=== PATIENT | male | born 1930 | race Caucasian/White ===

== ENCOUNTER 2017-12-16 08:52 | Observation (INO) | payer OTHER, BC ==
[2017-12-16 08:58] VITALS: BMI 29.9
[2017-12-16] MEDS ORDERED: ASPIRIN 325 MG ENTERIC COATED TABLET (FP) PO ONE (09:07)
[2017-12-16] MEDS ORDERED: ONDANSETRON 4 MG/2 ML VIAL IVPUSH ONE (09:07)
[2017-12-16] MEDS ORDERED: RANITIDINE HCL 150 MG TABLET (FP) PO ONE (09:09)
[2017-12-16] MEDS ORDERED: RANITIDINE HCL 150 MG TABLET (FP) ONE (09:24)
[2017-12-16] MEDS ORDERED: ASPIRIN 325 MG TABLET ONE (09:24)
--- NOTE | 2017-12-16 09:24 | PDOC ---
History of Present Illness - General Chief Complaint: Shortness of Breath Stated Complaint: SOB Time Seen by Provider: 12/16/17 09:06 History Source: Patient, Family - History of Present Illness Initial Comments: 12/16/17 09:19 87yoM hx of HTN, CABG, stents presents w/ SOB and nausea x midnight. Constant SOB w/ intermittnet nausea x midnight when he was woken from sleep w/ symptoms. no chest pain, no palps. Pt did have uroloic procedure 2d ago - cystoscopy. Pt states he was awake during procedure, proceudre approx 30 mins, ambulatory before and afterwards. No fevers, no travel, no vomiting, no diarrhea. Past History - Past Medical History Allergies/Adverse Reactions: Allergies Allergy/AdvReac Type Severity Reaction Status Date / Time No Known Allergies Allergy Verified 12/16/17 08:53 Home Medications: Ambulatory Orders Aspirin [ASA -] 81 mg PO DAILY 12/16/17 Ranolazine [Ranexa] 500 mg PO DAILY 12/16/17 COPD: No HTN: Yes Hypercholesterolemia: Yes - Surgical History Abdominal Surgery: Yes (2 HERNIA) Cardiac Surgery: Yes (3 BYPASS, [place], [place]) - Suicide/Smoking/Psychosocial Hx Smoking History: Former smoker Have you smoked in the past 12 months: No Information on smoking cessation initiated: No Hx Alcohol Use: No Drug/Substance Use Hx: No Substance Use Type: None *Physical Exam - Vital Signs Last Vital Signs Temp Pulse Resp BP Pulse Ox 97.5 F L 66 18 152/88 100 12/16/17 08:53 12/16/17 08:53 12/16/17 08:53 12/16/17 08:53 12/16/17 08:53 - Physical Exam Comments: 12/16/17 09:20 NAD, well appearing MMM RRR CTABL soft NTND no edema gait wnl, neuro grossly intact A&O x 3. Heart Score/ECG Review - History History: Moderately suspicious - Electrocardiogram EKG: Normal - Age Age: >/= 65 - Risk Factors Risk Factors Heart Score: Yes Hx Hypercholesterolemia, Yes Hx Hypertension, Yes Smoking History Based on the list above the patient has:: >/=3 risk factors or Hx atherosclerotic disease - Troponin Troponin: </= normal limit - Score Heart Score - Total: 5 - ECG Intrepretation Rhythm: Regular Rhythm - [place]: Normal - ECG Impressions Normal ECG: Yes ED Treatment Course - LABORATORY CBC & Chemistry Diagram: 12/16/17 09:00 12/16/17 09:00 - RADIOLOGY Radiology Studies Ordered: Category Date Time Status CHEST PA & LAT [RAD] Stat Radiology 12/16/17 09:07 Ordered Medical Decision Making - Medical Decision Making 12/16/17 09:22 87yoM w/ cardiac history presnets w/ acute onset of SOB and intermittent nausea overnight last night, concerning for ACS. Mild hypoxia on examination, low risk for PE despite brief outpatient urologic procedure recently. - labs - ekg - cardaic moniotr - CXR - ASA, sxs control - admit. 12/16/17 11:30 Case discussed w/ covering physician for pt's core paster. Pt's core paster: Dr. Lance Gomez @ [facility]. [phone] ECHO 2017 EF 60% CCTA 2012 w/ heavily calcified [place] arteries, patent CABG grafts, patent in- graft stents. Agrees w/ admit. *DC/Admit/Observation/Transfer Diagnosis at time of Disposition: Shortness of breath - Discharge Dispostion Decision to Admit order: Yes - Referrals Referrals: Alesha Mares MD [Primary Care Provider] - - Patient Instructions - Post Discharge Activity
[2017-12-16] MEDS ORDERED: ONDANSETRON 4 MG/2 ML VIAL ONE (09:25)
[2017-12-16 09:38] LABS: BASO % 1.2 % (0-2.0); EOS % 0.8 % (0-4.5); HEMATOCRIT 39.7 % (35.4-49); HEMOGLOBIN 13.4 GM/dl (11.7-16.9); LYMPH % 17.8 % (8-40); MCH 34.8 pg (25.7-33.7); MCHC 33.7 g/dl (32.0-35.9); MEAN CELL VOLUME 103.2 fl (80-96); MEAN PLT VOLUME 8.5 fl (7.5-11.1); MONO % 4.6 % (3.8-10.2); NEUT % 75.6 % (42.8-82.8); PLATELET COUNT 130 K/MM3 (134-434); RBC 3.85 M/mm3 (4.00-5.60); RDW 12.6 % (11.9-15.9); WHITE BLOOD COUNT 6.3 K/mm3 (4.0-10.8)
[2017-12-16 09:51] LABS: ALBUMIN 3.6 g/dl (3.5-5.0); ALK PHOS 100 U/L (32-92); ANION GAP 8 MMOL/L (8-16); BILIRUBIN,TOTAL 0.9 mg/dl (0.2-1.0); BLOOD UREA NITROGEN 12 mg/dl (7-18); CALCIUM 8.4 mg/dl (8.4-10.2); CHLORIDE 102 mmol/L (98-107); CO2 24 mmol/L (22-28); CREATININE 0.8 mg/dl (0.6-1.3); GLUCOSE,RANDOM 139 mg/dl (74-106); POTASSIUM 4.2 mmol/L (3.5-5.1); SGOT/AST 21 U/L (10-42); SGPT/ALT 12 U/L (10-40); SODIUM 134 mmol/L (136-145); TOT PROT 6.4 g/dl (6.4-8.3)
[2017-12-16 10:26] LABS: ACTIVATED PTT 30.9 SECONDS (25.2-36.5)
[2017-12-16 10:30] LABS: INR 1.21 (0.82-1.09); PROTHROMBIN TIME (PATIENT) 13.5 SEC (10.2-13.0)
--- NOTE | 2017-12-16 11:43 | HP ---
CHIEF COMPLAINT: SOB PCP: Dr. Mares Acct Exec: Dr. Lance Gomez, [facility], HISTORY OF PRESENT ILLNESS 87-year old male with a PMH significant for HTN, HLD, CAD s/p CABG s/p stents. Presented to the ED today with a complaint of SOB and nausea since midnight. Awoke from sleep feeling SOB although not acutely so. Accompanied by nausea but no vomiting. Patient was able to go to the bathroom twice during the night which is on a lower floor. Twice climbed down the stairs and then up without exacerbation of symptoms. Did not awaken until 7:45am to say he was not feeling well. At that point was able to get up, dress himself, go down three flights of stairs, and walk to the car. Per , she felt patient was exhibiting signs of anxiety. Patient denies chest pain, palpitations, diaphoresis, lightheadedness, orthopnea, lower extremity swelling. Denies fever , sweats, chills, nausea, vomiting, diarrhea. ER course was notable for: (1) (2) (3) Recent Travel: No PAST MEDICAL HISTORY: Hypertension Hyperlipidemia PAST SURGICAL HISTORY: Hernia repair x 2 Coronary bypass/stenting Social History: Smoking: former Alcohol: no Drugs: no Family History: Allergies No Known Allergies Allergy (Verified 12/16/17 08:53) HOME MEDICATIONS: Home Medications Medication Instructions Recorded Aspirin [ASA -] 81 mg PO DAILY 12/16/17 Ranolazine [Ranexa] 500 mg PO DAILY 12/16/17 REVIEW OF SYSTEMS CONSTITUTIONAL: Absent: fever, chills, diaphoresis, generalized weakness, malaise, loss of appetite, weight change HEENT: Absent: rhinorrhea, nasal congestion, throat pain, throat swelling, difficulty swallowing, mouth swelling, ear pain, eye pain, visual changes CARDIOVASCULAR: +SOB Absent: chest pain, syncope, palpitations, irregular heart rate, lightheadedness , peripheral edema RESPIRATORY: Absent: cough, shortness of breath, dyspnea with exertion, orthopnea, wheezing, stridor, hemoptysis GASTROINTESTINAL: +nausea Absent: abdominal pain, abdominal distension, nausea, vomiting, diarrhea, constipation, melena, hematochezia GENITOURINARY: Absent: dysuria, frequency, urgency, hesitancy, hematuria, flank pain, genital pain MUSCULOSKELETAL: Absent: myalgia, arthralgia, joint swelling, back pain, neck pain SKIN: Absent: rash, itching, pallor HEMATOLOGIC/IMMUNOLOGIC: Absent: easy bleeding, easy bruising, lymphadenopathy, frequent infections ENDOCRINE: Absent: unexplained weight gain, unexplained weight loss, heat intolerance, cold intolerance NEUROLOGIC: Absent: headache, focal weakness or paresthesias, dizziness, unsteady gait, seizure, mental status changes, bladder or bowel incontinence PSYCHIATRIC: Absent: anxiety, depression, suicidal or homicidal ideation, hallucinations. PHYSICAL EXAMINATION Vital Signs - 24 hr 12/16/17 08:53 Temperature 97.5 F L Pulse Rate 66 Respiratory 18 Rate Blood Pressure 152/88 O2 Sat by Pulse 100 Oximetry (%) GENERAL: Awake, alert, and fully oriented, in no acute distress. HEAD: Normal with no signs of trauma. EYES: Pupils equal, round and reactive to light, extraocular movements intact, sclera anicteric, conjunctiva clear. No lid lag. NECK: Normal range of motion, supple without lymphadenopathy, JVD, or masses. LUNGS: Breath sounds equal, clear to auscultation bilaterally. No wheezes, and no crackles. No accessory muscle use. HEART: Regular rate and rhythm, normal S1 and S2 +murmur ABDOMEN: Soft, nontender, not distended, normoactive bowel sounds, no guarding, no rebound MUSCULOSKELETAL: Normal range of motion at all joints. No bony deformities or tenderness. No CVA tenderness. UPPER EXTREMITIES: 2+ pulses, warm, well-perfused. No cyanosis. No clubbing. No peripheral edema. Extensive purpura bilateral hands LOWER EXTREMITIES: 2+ pulses, warm, well-perfused. No calf tenderness. No peripheral edema. NEUROLOGICAL: Cranial nerves II-XII intact. Normal speech. Laboratory Results - last 24 hr 12/16/17 12/16/17 12/16/17 09:00 09:00 09:00 WBC 6.3 RBC 3.85 L Hgb 13.4 Hct 39.7 MCV 103.2 H MCH 34.8 H MCHC 33.7 RDW 12.6 Plt Count 130 L MPV 8.5 Absolute Neuts (auto) 4.6 Neutrophils % 75.6 D Lymphocytes % 17.8 D Monocytes % 4.6 Eosinophils % 0.8 D Basophils % 1.2 PT with INR 13.5 H INR 1.21 PTT (Actin FS) 30.9 Sodium 134 L Potassium 4.2 Chloride 102 Carbon Dioxide 24 Anion Gap 8 BUN 12 Creatinine 0.8 Creat Clearance w eGFR > 60 Random Glucose 139 H D Calcium 8.4 Total Bilirubin 0.9 AST 21 ALT 12 D Alkaline Phosphatase 100 H Creatine Kinase 84 Troponin I Total Protein 6.4 Albumin 3.6 12/16/17 09:00 WBC RBC Hgb Hct MCV MCH MCHC RDW Plt Count MPV Absolute Neuts (auto) Neutrophils % Lymphocytes % Monocytes % Eosinophils % Basophils % PT with INR INR PTT (Actin FS) Sodium Potassium Chloride Carbon Dioxide Anion Gap BUN Creatinine Creat Clearance w eGFR Random Glucose Calcium Total Bilirubin AST ALT Alkaline Phosphatase Creatine Kinase Troponin I < 0.03 Total Protein Albumin ASSESSMENT/PLAN: 87-year old male with a PMH significant for HTN, HLD, CAD s/p CABG s/p stents. Admitted for SOB. SOB --trop neg x 2, third pending --CXR unremarkable --BNP wnl --ECG not suggestive of acute ischemic event --d-dimer negative; no indication for further PE workup --echo ordered --stress on Monday; make NPO on Monday night --afebrile, no leukocytosis; observe off antibiotics Coronary artery disease --continue ASA, Plavix, Ranexa, isosorgbide, Lipitor Hypertension --BP stable --not on antihypertensives Hyperlipidemia --continue atorvastatin DVT prophylaxis: subq heparin Visit type - Emergency Visit Emergency Visit: Yes ED Registration Date: 12/16/17 Care time: The patient presented to the Emergency Department on the above date and was hospitalized for further evaluation of their emergent condition. - New Patient This patient is new to me today: Yes Date on this admission: 12/16/17 - Critical Care Critical Care patient: No
--- NOTE | 2017-12-16 14:48 | EKG ---
Test Reason : Blood Pressure : / mmHG Vent. Rate : 063 BPM Atrial Rate : 063 BPM P-R Int : 146 ms QRS Dur : 094 ms QT Int : 460 ms P-R-T Axes : 017 -24 016 degrees QTc Int : 470 ms POOR DATA QUALITY, INTERPRETATION MAY BE ADVERSELY AFFECTED NORMAL SINUS RHYTHM NORMAL ECG WHEN COMPARED WITH ECG OF 11-DEC-2001 01:23, PREMATURE ECTOPIC COMPLEXES ARE NO LONGER PRESENT Confirmed by MD Pratik, Luis ([id number]) on 12/16/2017 2:48:30 PM Referred By: DAKOTA Confirmed By:Luis Christie MD
[2017-12-16] MEDS: HEPARIN NA (PORCINE) 5,000 UNITS/ML 1ML VIAL SQ SCH (17:24)
--- NOTE | 2017-12-16 17:49 | CON.CARD ---
Consult Consult Specialty:: cardiology Reason for Consultation:: SOB; hx CABG - History of Present Illness Chief Complaint: Pt A&Ox3; no chest pain or dyspnea presently History of Present Illness: 87yo white man with PM hx of HTN, [place]-->CABG 1993, with coronary stent of ? vein graft 1995, HTN, hyperlipidemia, obesity, who presents w/ SOB and nausea since midnight. Constant SOB for hours w/ intermittent nausea when he was woken from sleep w/ symptoms. no chest pain, but some accompanying chest pressure, no palpitations. Pt did have urologic procedure 2d ago - cystoscopy. Pt states he was awake during procedure, procedure approx 30 mins, ambulatory before and afterwards. No fevers, no travel, no vomiting, no diarrhea. Quit cigarettes >50 years ago - History Source History Provided By: Patient, Medical Record Limitations to Obtaining History: No Limitations - Past Medical History Cardio/Vascular: Yes: CAD, HTN, Hyperlipdemia, DE - Past Surgical History Past Surgical History: Yes: CABG, Stent - Alcohol/Substance Use Hx Alcohol Use: No - Smoking History Smoking history: Former smoker Have you smoked in the past 12 months: No - Social History Usual Living Arrangement: With Spouse Place of : [facility] Home Medications - Allergies Allergies/Adverse Reactions: Allergies Allergy/AdvReac Type Severity Reaction Status Date / Time No Known Allergies Allergy Verified 12/16/17 08:53 - Home Medications Home Medications: Ambulatory Orders Aspirin [ASA -] 81 mg PO DAILY 12/16/17 Atorvastatin Ca [Lipitor] 80 mg PO DAILY 12/16/17 Clopidogrel Bisulfate [Plavix] 75 mg PO DAILY 12/16/17 Isosorbide Mononitrate [Isosorbide Mononitrate ER] 120 mg PO DAILY 12/16/17 Ranolazine [Ranexa] 500 mg PO DAILY 12/16/17 Family Disease History - Family Disease History Family History: Denies Review of Systems - Review of Systems Constitutional: reports: Other (shortness of breath and exertiona fatigue) Eyes: reports: No Symptoms HENT: reports: No Symptoms Neck: reports: No Symptoms Cardiovascular: reports: Shortness of Breath Respiratory: reports: SOB Gastrointestinal: reports: No Symptoms Genitourinary: reports: No Symptoms Breasts: reports: No Symptoms Reported Musculoskeletal: reports: No Symptoms Integumentary: reports: No Symptoms Neurological: reports: No Symptoms Endocrine: reports: No Symptoms Hematology/Lymphatic: reports: No Symptoms Psychiatric: reports: No Symptoms - Risk Factors Known Risk Factors: Yes: Age, Gender, Hypercholesterolemia, Hypertension, Physical Inactivity (sedentary lifestyle), Prior [place] /Emb Stroke, Smoking (former ), Other (DE-->CABG and , later, coronary stent) Vital Signs: Vital Signs Temperature 97.6 F 12/16/17 14:00 Pulse Rate 70 12/16/17 14:00 Respiratory Rate 18 12/16/17 14:00 Blood Pressure 124/63 12/16/17 14:00 O2 Sat by Pulse Oximetry (%) 100 12/16/17 13:04 Constitutional: Yes: Well Nourished Eyes: Yes: WNL HENT: Yes: WNL Neck: Yes: WNL Respiratory: Yes: WNL Gastrointestinal: Yes: WNL Renal/: No: Anuria Cardiovascular: Yes: WNL Carotid Bruit: No PMI: Non-Displaced Heart Sounds: Yes: S1, S2 Murmur: Yes: Systolic Murmur Peripheral Pulses WNL: No Integumentary: Yes: Bruising (hands (blames it on "Plavix"); also on ASA) Neurological: Yes: WNL Psychiatric: Yes: WNL - Other Data Labs, Other Data: CBC, BMP 12/16/17 09:00 12/16/17 09:00 INR, PTT INR 1.21 (0.82-1.09) 12/16/17 09:00 Troponin, BNP 12/16/17 12/16/17 12/16/17 09:00 12:00 12:20 Troponin I < 0.03 Cancelled < 0.03 B-Natriuretic Peptide 301.0 Troponin, BNP 12/16/17 12/16/17 12/16/17 09:00 12:00 12:20 Troponin I < 0.03 Cancelled < 0.03 B-Natriuretic Peptide 301.0 Abnormal Lab Results 12/16/17 12/16/17 12/16/17 09:00 09:00 09:00 RBC 3.85 L MCV 103.2 H MCH 34.8 H Plt Count 130 L PT with INR 13.5 H Sodium 134 L Random Glucose 139 H D Alkaline Phosphatase 100 H Imaging - Results Chest X-ray: Image Reviewed (no acute pathology) EKG: Image Reviewed (NSR; no acute STT changes) Problem List - Problems (1) Status post myocardial infarction Code(s): I25.2 - OLD MYOCARDIAL INFARCTION (2) Shortness of breath Code(s): R06.02 - SHORTNESS OF BREATH (3) Hx of CABG Code(s): Z95.1 - PRESENCE OF AORTOCORONARY BYPASS GRAFT (4) Stented coronary artery Code(s): Z95.5 - PRESENCE OF CORONARY ANGIOPLASTY IMPLANT AND GRAFT (5) HTN (hypertension) Code(s): I10 - ESSENTIAL (PRIMARY) HYPERTENSION (6) Obesity Code(s): E66.9 - OBESITY, UNSPECIFIED (7) Hyperlipidemia Assessment/Plan: on atorvastatin (total cholesterol 119; LDL 60 mg/dL). Code(s): E78.5 - HYPERLIPIDEMIA, UNSPECIFIED (8) [place] cardiac risk >20% in next 10 years Assessment/Plan: On ASA and Plavix. Pt says he is on Ranexa 500 mg tid. Imdur 30 mg daily Continue atorvastatin 80 mg daily Telemetry; serial EKGs; ECHO. Await records from pt's children's tutor. Plan on stress treadmill MIBI Monday. Code(s): Z91.89 - OTH PERSONAL RISK FACTORS, NOT ELSEWHERE CLASSIFIED
[2017-12-16] MEDS: RANOLAZINE E.R. 500 MG TABLET (FP) PO SCH (21:12)
[2017-12-17] MEDS: HEPARIN NA (PORCINE) 5,000 UNITS/ML 1ML VIAL SQ SCH ×3 (01:16→17:31)
[2017-12-17 09:40] LABS: ALBUMIN 3.3 g/dl (3.5-5.0); ALK PHOS 91 U/L (32-92); ANION GAP 8 MMOL/L (8-16); BILIRUBIN,TOTAL 0.7 mg/dl (0.2-1.0); BLOOD UREA NITROGEN 14 mg/dl (7-18); CALCIUM 8.2 mg/dl (8.4-10.2); CHLORIDE 104 mmol/L (98-107); CO2 23 mmol/L (22-28); CREATININE 0.8 mg/dl (0.6-1.3); GLUCOSE,RANDOM 86 mg/dl (74-106); POTASSIUM 4.3 mmol/L (3.5-5.1); SGOT/AST 19 U/L (10-42); SGPT/ALT 11 U/L (10-40); SODIUM 135 mmol/L (136-145); TOT PROT 5.8 g/dl (6.4-8.3)
[2017-12-17] MEDS: RANOLAZINE E.R. 500 MG TABLET (FP) PO SCH ×2 (09:51→21:05)
[2017-12-17] MEDS: ATORVASTATIN CA 80 MG TABLET (FP) PO SCH (09:52)
[2017-12-17] MEDS: ISOSORBIDE MONONITRATE 60 MG TAB.SR.24H (FP) PO SCH (09:52)
[2017-12-17] MEDS: ASPIRIN 81 MG CHEWABLE TABLETS PO SCH (09:52)
[2017-12-17] MEDS: CLOPIDOGREL BISULFATE 75 MG TABLET (FP) PO SCH (09:53)
[2017-12-17] MEDS ORDERED: RANOLAZINE E.R. 500 MG TABLET (FP) PO SCH (10:00)
[2017-12-17] MEDS ORDERED: PATIENT'S OWN MEDICATION (NON-FORMULARY) (Isosorbide Mononitrate [Isosorbide Mononitrate E PO SCH (10:00)
--- NOTE | 2017-12-17 10:41 | PN ---
Physical Exam: SUBJECTIVE: Patient seen and examined,reports feeling better, denies cp, sob, palpitations, abdominal pain, N/V/D. OBJECTIVE: Vital Signs Period Temp Pulse Resp BP Sys/Parrish Pulse Ox Last 24 Hr 97.5 F-97.8 F 61-75 16-19 105-141/52-73 94-100 GENERAL: The patient is awake, alert, and fully oriented, in no acute distress. HEAD: Normal with no signs of trauma. EYES: PERRL, extraocular movements intact, sclera anicteric, conjunctiva clear. No ptosis. ENT: Ears normal, nares patent, oropharynx clear without exudates, moist mucous membranes. NECK: Trachea midline, full range of motion, supple. LUNGS: Breath sounds equal, clear to auscultation bilaterally, no wheezes, no crackles, no accessory muscle use. HEART: Regular rate and rhythm, S1, S2 without murmur, rub or gallop. ABDOMEN: Soft, non-tender, non-distended, normoactive bowel sounds, no guarding , no rebound, no hepatosplenomegaly, no masses. EXTREMITIES: 2+ pulses, warm, well-perfused, no edema. NEUROLOGICAL: Cranial nerves II through XII grossly intact. Normal speech, gait not observed. PSYCH: Normal mood, normal affect. SKIN: Warm, dry, normal turgor, no rashes or lesions noted Laboratory Results - last 24 hr 12/16/17 12/16/17 12/16/17 09:00 12:00 12:02 WBC Corrected WBC (auto) RBC Hgb Hct MCV MCH MCHC RDW Plt Count MPV Absolute Neuts (auto) Neutrophils % Lymphocytes % Monocytes % Eosinophils % Basophils % Nucleated RBC % Platelet Estimate Platelet Comment PT with INR 13.5 H INR 1.21 PTT (Actin FS) 30.9 D-Dimer < 200 Sodium Potassium Chloride Carbon Dioxide Anion Gap BUN Creatinine Creat Clearance w eGFR Random Glucose Calcium Magnesium Total Bilirubin AST ALT Alkaline Phosphatase Troponin I Cancelled B-Natriuretic Peptide 301.0 Total Protein Albumin TSH 1.66 D 12/16/17 12/16/17 12/17/17 12:20 19:00 08:00 WBC Cancelled Corrected WBC (auto) Cancelled RBC Cancelled Hgb Cancelled Hct Cancelled MCV Cancelled MCH Cancelled MCHC Cancelled RDW Cancelled Plt Count Cancelled MPV Cancelled Absolute Neuts (auto) Cancelled Neutrophils % Cancelled Lymphocytes % Cancelled Monocytes % Cancelled Eosinophils % Cancelled Basophils % Cancelled Nucleated RBC % Cancelled Platelet Estimate Cancelled Platelet Comment Cancelled PT with INR INR PTT (Actin FS) D-Dimer Sodium Potassium Chloride Carbon Dioxide Anion Gap BUN Creatinine Creat Clearance w eGFR Random Glucose Calcium Magnesium Total Bilirubin AST ALT Alkaline Phosphatase Troponin I < 0.03 < 0.03 B-Natriuretic Peptide Total Protein Albumin TSH 12/17/17 08:00 WBC Corrected WBC (auto) RBC Hgb Hct MCV MCH MCHC RDW Plt Count MPV Absolute Neuts (auto) Neutrophils % Lymphocytes % Monocytes % Eosinophils % Basophils % Nucleated RBC % Platelet Estimate Platelet Comment PT with INR INR PTT (Actin FS) D-Dimer Sodium 135 L Potassium 4.3 Chloride 104 Carbon Dioxide 23 Anion Gap 8 BUN 14 Creatinine 0.8 Creat Clearance w eGFR > 60 Random Glucose 86 D Calcium 8.2 L Magnesium 2.0 Total Bilirubin 0.7 AST 19 ALT 11 Alkaline Phosphatase 91 Troponin I B-Natriuretic Peptide Total Protein 5.8 L Albumin 3.3 L TSH Active Medications Generic Name Dose Route Start Last Admin Trade Name Freq PRN Reason Stop Dose Admin Aspirin 81 mg 12/17/17 10:00 12/17/17 09:52 Asa - PO 81 mg DAILY EDWIN Administration Atorvastatin Calcium 80 mg 12/17/17 10:00 12/17/17 09:52 Lipitor - PO 80 mg DAILY EDWIN Administration Clopidogrel Bisulfate 75 mg 12/17/17 10:00 12/17/17 09:53 Plavix - PO 75 mg DAILY EDWIN Administration Heparin Sodium (Porcine) 5,000 unit 12/16/17 18:00 12/17/17 09:52 Heparin - SQ 5,000 unit Q8H-IV EDWIN Administration Isosorbide Mononitrate 120 mg 12/17/17 10:00 12/17/17 09:52 Imdur - PO 120 mg DAILY EDWIN Administration Ranolazine 500 mg 12/16/17 22:00 12/17/17 09:51 Ranexa - PO 500 mg BID EDWIN Administration EKG: SR CxR: No acute pathology ASSESSMENT/PLAN: This is an 87-year old male with a PMH significant for HTN, HLD, ex- smoker,CAD s/p CABG s/p stents. Presented to the ED today with a complaint of SOB and nausea since midnight. *SOB - serial cardiac enzymes negative, ACS ruled out - no cardiac events on tele - BNP 301 -D-dimer negative; no indication for further PE workup - cardiology following,rec Echo and stress on Monday - NPO after MN - afebrile with no leukocytosis - cxr: NAD *Coronary artery disease -continue ASA, Plavix, Ranexa, isosorbide and Lipitor *Hypertension-BP stable - On Imdur *Hyperlipidemia -will continue atorvastatin *DVT prophylaxis: Heparin SQ Visit type - Emergency Visit Emergency Visit: Yes ED Registration Date: 12/16/17 Care time: The patient presented to the Emergency Department on the above date and was hospitalized for further evaluation of their emergent condition. - New Patient This patient is new to me today: Yes Date on this admission: 12/17/17 - Critical Care Critical Care patient: No
[2017-12-18] MEDS: HEPARIN NA (PORCINE) 5,000 UNITS/ML 1ML VIAL SQ SCH ×3 (01:36→15:50)
--- NOTE | 2017-12-18 07:26 | PN ---
Physical Exam: SUBJECTIVE: Patient seen and examined, pending stress test today, denies any chest discomfort or shortness of breath. OBJECTIVE: patient is a 87-year old male with a PMH significant for HTN, HLD, and CAD s/p CABG s/p stents, patient was admitted from the emergency department to observation for r/o acs. Vital Signs Period Temp Pulse Resp BP Sys/Parrish Pulse Ox Last 24 Hr 97.6 F-98.5 F 64-82 17-18 98-134/57-74 94-99 GENERAL: The patient is awake, alert, and fully oriented, in no acute distress. HEAD: Normal with no signs of trauma. EYES: PERRL, extraocular movements intact, sclera anicteric, conjunctiva clear. No ptosis. ENT: Ears normal, nares patent, oropharynx clear without exudates, moist mucous membranes. NECK: Trachea midline, full range of motion, supple. LUNGS: Breath sounds equal, clear to auscultation bilaterally, no wheezes, no crackles, no accessory muscle use. HEART: Regular rate and rhythm, S1, S2 without murmur, rub or gallop. ABDOMEN: Soft, nontender, nondistended, normoactive bowel sounds, no guarding, no rebound, no hepatosplenomegaly, no masses. EXTREMITIES: 2+ pulses, warm, well-perfused, no edema. NEUROLOGICAL: Cranial nerves II through XII grossly intact. Normal speech, gait not observed. PSYCH: Normal mood, normal affect. SKIN: Warm, dry, normal turgor, no rashes or lesions noted Laboratory Results - last 24 hr 12/17/17 12/17/17 08:00 08:00 WBC Cancelled Corrected WBC (auto) Cancelled RBC Cancelled Hgb Cancelled Hct Cancelled MCV Cancelled MCH Cancelled MCHC Cancelled RDW Cancelled Plt Count Cancelled MPV Cancelled Absolute Neuts (auto) Cancelled Neutrophils % Cancelled Lymphocytes % Cancelled Monocytes % Cancelled Eosinophils % Cancelled Basophils % Cancelled Nucleated RBC % Cancelled Platelet Estimate Cancelled Platelet Comment Cancelled Sodium 135 L Potassium 4.3 Chloride 104 Carbon Dioxide 23 Anion Gap 8 BUN 14 Creatinine 0.8 Creat Clearance w eGFR > 60 Random Glucose 86 D Calcium 8.2 L Magnesium 2.0 Total Bilirubin 0.7 AST 19 ALT 11 Alkaline Phosphatase 91 Total Protein 5.8 L Albumin 3.3 L Active Medications Generic Name Dose Route Start Last Admin Trade Name Janis PRN Reason Stop Dose Admin Aspirin 81 mg 12/17/17 10:00 12/17/17 09:52 Asa - PO 81 mg DAILY EDWIN Administration Atorvastatin Calcium 80 mg 12/17/17 10:00 12/17/17 09:52 Lipitor - PO 80 mg DAILY EDWIN Administration Clopidogrel Bisulfate 75 mg 12/17/17 10:00 12/17/17 09:53 Plavix - PO 75 mg DAILY EDWIN Administration Heparin Sodium (Porcine) 5,000 unit 12/16/17 18:00 12/18/17 01:38 Heparin - SQ 5,000 unit Q8H-IV EDWIN Administration Isosorbide Mononitrate 120 mg 12/17/17 10:00 12/17/17 09:52 Imdur - PO 120 mg DAILY EDWIN Administration Ranolazine 500 mg 12/16/17 22:00 12/17/17 21:05 Ranexa - PO 500 mg BID EDWIN Administration IMAGING CXR: no acute pathology echo 12/18/17: ef 50-55% ASSESSMENT/PLAN: 1) cardiovascular r/o acs - troponin x 3 wnl, ddimmer negative - no events noted on cardiac monitoring - echo noted, stress test completed negative - cardiology consulted and followed cad stable angina - continue ranexa, plavix, indur and lipitor Visit type - Emergency Visit Emergency Visit: Yes ED Registration Date: 12/16/17 Care time: The patient presented to the Emergency Department on the above date and was hospitalized for further evaluation of their emergent condition. - New Patient This patient is new to me today: Yes Date on this admission: 12/18/17 - Critical Care Critical Care patient: No - Discharge Referral Referred to [facility] Med P.C[facility] No
--- NOTE | 2017-12-18 10:43 | ECHO ---
Name: CORNELIA, LC Exam:Adult Echocardiogram Study Date: 12/18/2017 09:48 AM Age: 87 yrs Reason For Study: SOB Height: 73 in Weight: 226 lb BSA: 2.3 m2 MMode/2D Measurements & Calculations IVSd: 0.93 cm Ao root diam: 3.7 cm LVIDd: 4.3 cm LA dimension: 3.6 cm LVIDs: 3.0 cm LVPWd: 0.79 cm EDV(Teich): 84.0 ml LVOT diam: 2.2 cm ESV(Teich): 35.3 ml TAPSE: 1.7 cm RV S Jaime: 9.5 cm/sec Doppler Measurements & Calculations MV E max jaime: 72.1 cm/sec TR max jaime: 194.3 cm/sec MV A max jaime: 84.8 cm/sec TR max P.1 mmHg MV E/A: 0.85 Med Peak E' Jaime: 6.3 cm/sec Med E/e': 11.4 Lat Peak E' Jaime: 7.9 cm/sec Lat E/e': 9.1 Procedure A complete two-dimensional transthoracic echocardiogram was performed (2D, M-mode, Doppler and color flow Doppler). Technically limited study. Left Ventricle The left ventricle is normal in size. Left ventricular systolic function is low normal. Ejection Frac tion = 50-55%. No regional wall motion abnormalities noted. Right Ventricle The right ventricle is normal size. The right ventricular systolic function is normal. RV systolic TD I is 12 cm/s. Atria The left atrial size is normal. Right atrium not well visualized. Mitral Valve There is mild to moderate mitral annular calcification. There is mild mitral regurgitation. Tricuspid Valve The tricuspid valve is normal in structure and function. There is mild tricuspid regurgitation. Aortic Valve There is mild aortic sclerosis.;. No aortic regurgitation is present. Pulmonic Valve The pulmonic valve is not well visualized. Trace to mild pulmonic valvular regurgitation. Great Vessels The aortic root is normal size. Pericardium/Pleura There is no pericardial effusion. Interpretation Summary Technically limited study The left ventricle is normal in size. Left ventricular systolic function is low normal. No regional wall motion abnormalities noted. Ejection Fraction = 50-55%. The right ventricular systolic function is normal. The left atrial size is normal. There is mild to moderate mitral annular calcification. There is mild mitral regurgitation. There is mild tricuspid regurgitation. There is mild aortic sclerosis. Trace to mild pulmonic valvular regurgitation. There is no pericardial effusion. Previous study is not available for comparison Abdi Antunez MD 12/18/2017 10:43 AM
--- NOTE | 2017-12-18 12:30 | PN ---
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 vein graft 1995, HTN, hyperlipidemia, obesity, who presents w/ SOB and nausea since midnight. Constant SOB for hours w/ intermittent nausea when he was woken from sleep w/ symptoms. no chest pain, but some accompanying chest pressure, no palpitations. Pt did have urologic procedure 2d ago - cystoscopy. Pt states he was awake during procedure, procedure approx 30 mins, ambulatory before and afterwards. No fevers, no travel, no vomiting, no diarrhea. Quit cigarettes >50 years ago - Current Medication List Current Medications: Active Medications Aspirin (Asa -) 81 mg PO DAILY [facility] Last Admin: 12/17/17 09:52 Dose: 81 mg Atorvastatin Calcium (Lipitor -) 80 mg PO DAILY [facility] Last Admin: 12/17/17 09:52 Dose: 80 mg Clopidogrel Bisulfate (Plavix -) 75 mg PO DAILY [facility] Last Admin: 12/17/17 09:53 Dose: 75 mg Heparin Sodium (Porcine) (Heparin -) 5,000 unit SQ Q8H-IV [facility] Last Admin: 12/18/17 01:38 Dose: 5,000 unit Isosorbide Mononitrate (Imdur -) 120 mg PO DAILY [facility] Last Admin: 12/17/17 09:52 Dose: 120 mg Ranolazine (Ranexa -) 500 mg PO BID [facility] Last Admin: 12/17/17 21:05 Dose: 500 mg - Objective Vital Signs: Vital Signs Temperature 97.7 F 12/18/17 07:52 Pulse Rate 63 12/18/17 07:52 Respiratory Rate 18 12/18/17 07:56 Blood Pressure 125/70 12/18/17 07:52 O2 Sat by Pulse Oximetry (%) 94 L 12/18/17 07:56 Eyes: Yes: WNL, Conjunctiva Clear, EOM Intact HENT: Yes: WNL, Atraumatic, Normocephalic Neck: Yes: WNL, Supple, Trachea Midline Cardiovascular: Yes: WNL, Regular Rate and Rhythm Respiratory: Yes: WNL, Regular, CTA Bilaterally Gastrointestinal: Yes: WNL, Normal Bowel Sounds Genitourinary: Yes: WNL Musculoskeletal: Yes: WNL Extremities: Yes: WNL Edema: No Integumentary: Yes: WNL Neurological: Yes: WNL, Alert, Oriented ...Motor Strength: WNL Psychiatric: Yes: WNL Labs: CBC, BMP 12/17/17 08:00 12/17/17 08:00 INR, PTT INR 1.21 (0.82-1.09) 12/16/17 09:00 Assessment/Plan Results Chest X-ray: Image Reviewed (no acute pathology) EKG: Image Reviewed (NSR; no acute STT changes) Problem List - Problems (1) Status post myocardial infarction Code(s): I25.2 - OLD MYOCARDIAL INFARCTION (2) Shortness of breath Code(s): R06.02 - SHORTNESS OF BREATH (3) Hx of CABG Code(s): Z95.1 - PRESENCE OF AORTOCORONARY BYPASS GRAFT (4) Stented coronary artery Code(s): Z95.5 - PRESENCE OF CORONARY ANGIOPLASTY IMPLANT AND GRAFT (5) HTN (hypertension) Code(s): I10 - ESSENTIAL (PRIMARY) HYPERTENSION (6) Obesity Code(s): E66.9 - OBESITY, UNSPECIFIED (7) Hyperlipidemia Assessment/Plan: on atorvastatin (total cholesterol 119; LDL 60 mg/dL). Code(s): E78.5 - HYPERLIPIDEMIA, UNSPECIFIED (8) Willard cardiac risk >20% in next 10 years Assessment/Plan: On ASA and Plavix. Pt says he is on Ranexa 500 mg tid. Imdur 30 mg daily Continue atorvastatin 80 mg daily Telemetry; serial EKGs; ECHO. Await records from pt's head porter. awaiting results of echo and [facility] ST Code(s): Z91.89 - OTH PERSONAL RISK FACTORS, NOT ELSEWHERE CLASSIFIED
--- NOTE | 2017-12-18 15:08 | EKG ---
Test Reason : Blood Pressure : / mmHG Vent. Rate : 070 BPM Atrial Rate : 070 BPM P-R Int : 168 ms QRS Dur : 098 ms QT Int : 426 ms P-R-T Axes : -06 -27 -05 degrees QTc Int : 460 ms NORMAL SINUS RHYTHM NORMAL ECG WHEN COMPARED WITH ECG OF 16-DEC-2017 09:12, NO SIGNIFICANT CHANGE WAS FOUND Confirmed by SHANIKA HASKINS MD ([id number]) on 12/18/2017 3:08:03 PM Referred By: MD FOLEY Confirmed By:SHANIKA HASKINS MD
[2017-12-18 15:30] VITALS: BP 138/82; PULSE 79; TEMP 97.5
[2017-12-18] MEDS: CLOPIDOGREL BISULFATE 75 MG TABLET (FP) PO SCH (15:50)
[2017-12-18] MEDS: ISOSORBIDE MONONITRATE 60 MG TAB.SR.24H (FP) PO SCH (15:50)
[2017-12-18] MEDS: ASPIRIN 81 MG CHEWABLE TABLETS PO SCH (15:50)
[2017-12-18] MEDS: ATORVASTATIN CA 80 MG TABLET (FP) PO SCH (15:50)
[2017-12-18] MEDS: RANOLAZINE E.R. 500 MG TABLET (FP) PO SCH (15:50)
--- NOTE | 2017-12-19 14:04 | DS ---
Physical Exam: SUBJECTIVE: Patient seen and examined, ambulatory at bedside, denies any chest pain or shortness of breath, tolerating diet, wants to go home OBJECTIVE:87-year old male with a PMH significant for HTN, HLD, CAD s/p CABG s/ p stents. Presented to the ED today with a complaint of SOB and nausea since midnight. Awoke from sleep feeling SOB although not acutely so. Accompanied by nausea but no vomiting. Patient was able to go to the bathroom twice during the night which is on a lower floor. Twice climbed down the stairs and then up without exacerbation of symptoms. Did not awaken until 7:45am to say he was not feeling well. At that point was able to get up, dress himself, go down three flights of stairs, and walk to the car. Per , she felt patient was exhibiting signs of anxiety. Patient denies chest pain, palpitations, diaphoresis, lightheadedness, orthopnea, lower extremity swelling. Denies fever , sweats, chills, nausea, vomiting, diarrhea. Vital Signs Period Temp Pulse Resp BP Sys/Parrish Pulse Ox Last 24 Hr 97.5 F 79 18 138/82 PHYSICAL EXAM GENERAL: The patient is awake, alert, and fully oriented, in no acute distress. HEAD: Normal with no signs of trauma. EYES: PERRL, extraocular movements intact, sclera anicteric, conjunctiva clear. ENT: Ears normal, nares patent, oropharynx clear without exudates, moist mucous membranes. NECK: Trachea midline, full range of motion, supple. LUNGS: Breath sounds equal, clear to auscultation bilaterally, no wheezes, no crackles, no accessory muscle use. HEART: Regular rate and rhythm, S1, S2 without murmur, rub or gallop. ABDOMEN: Soft, nontender, nondistended, normoactive bowel sounds, no guarding, no rebound, no hepatosplenomegaly, no masses. EXTREMITIES: 2+ pulses, warm, well-perfused, no edema. NEUROLOGICAL: Cranial nerves II through XII grossly intact. Normal speech, steady gait noted. PSYCH: Normal mood, normal affect. SKIN: Warm, dry, normal turgor, no rashes or lesions noted. LABS CBC WBC 6.3 K/mm3 (4.0-10.8) 12/16/17 09:00 Corrected WBC (auto) Cancelled 12/17/17 08:00 RBC 3.85 M/mm3 (4.00-5.60) L 12/16/17 09:00 Hgb 13.4 GM/dl (11.7-16.9) 12/16/17 09:00 Hct 39.7 % (35.4-49) 12/16/17 09:00 MCV 103.2 fl (80-96) H 12/16/17 09:00 MCH 34.8 pg (25.7-33.7) H 12/16/17 09:00 MCHC 33.7 g/dl (32.0-35.9) 12/16/17 09:00 RDW 12.6 % (11.9-15.9) 12/16/17 09:00 Plt Count 130 K/MM3 (134-434) L 12/16/17 09:00 MPV 8.5 fl (7.5-11.1) 12/16/17 09:00 Absolute Neuts (auto) 4.6 K/mm3 12/16/17 09:00 Neutrophils % 75.6 % (42.8-82.8) D 12/16/17 09:00 Lymphocytes % 17.8 % (8-40) D 12/16/17 09:00 Monocytes % 4.6 % (3.8-10.2) 12/16/17 09:00 Eosinophils % 0.8 % (0-4.5) D 12/16/17 09:00 Basophils % 1.2 % (0-2.0) 12/16/17 09:00 Nucleated RBC % Cancelled 12/17/17 08:00 Platelet Estimate Cancelled 12/17/17 08:00 Platelet Comment Cancelled 12/17/17 08:00 CMP Sodium 135 mmol/L (136-145) L 12/17/17 08:00 Potassium 4.3 mmol/L (3.5-5.1) 12/17/17 08:00 Chloride 104 mmol/L (98-107) 12/17/17 08:00 Carbon Dioxide 23 mmol/L (22-28) 12/17/17 08:00 Anion Gap 8 MMOL/L (8-16) 12/17/17 08:00 BUN 14 mg/dl (7-18) 12/17/17 08:00 Creatinine 0.8 mg/dl (0.6-1.3) 12/17/17 08:00 Creat Clearance w eGFR > 60 (>60) 12/17/17 08:00 Random Glucose 86 mg/dl (74-106) D 12/17/17 08:00 Calcium 8.2 mg/dl (8.4-10.2) L 12/17/17 08:00 Magnesium 2.0 mg/dL (1.8-2.4) 12/17/17 08:00 Total Bilirubin 0.7 mg/dl (0.2-1.0) 12/17/17 08:00 AST 19 U/L (10-42) 12/17/17 08:00 ALT 11 U/L (10-40) 12/17/17 08:00 Alkaline Phosphatase 91 U/L (32-92) 12/17/17 08:00 Creatine Kinase 84 IU/L (26-308) 12/16/17 09:00 Troponin I < 0.03 ng/ml (0.00-0.06) 12/16/17 19:00 B-Natriuretic Peptide 301.0 pg/ml (5-450) 12/16/17 12:00 Total Protein 5.8 g/dl (6.4-8.3) L 12/17/17 08:00 Albumin 3.3 g/dl (3.5-5.0) L 12/17/17 08:00 TSH 1.66 uIU/ml (0.358-3.74) D 12/16/17 12:00 Laboratory Tests 12/16/17 12/16/17 12/16/17 09:00 12:20 19:00 Troponin I < 0.03 < 0.03 < 0.03 IMAGING CXR: no acute pathology echo 12/18/17: ef 50-55% HOSPITAL COURSE: 1) cardiovascular r/o acs - troponin x 3 wnl, ddimmer negative - no events noted on cardiac monitoring - echo noted, stress test completed negative - cardiology consulted and followed cad stable angina - continued ranexa, plavix, indur and lipitor Date of Admission:12/16/17 Date of Discharge: 12/19/17 Minutes to complete discharge: 35 Discharge Summary Reason For Visit: SOB Condition: Improved - Instructions Diet, Activity, Other Instructions: continue all medications as prescribed please follow up with your certified addiction counselor within 2 weeks if any new or persistent symptoms develop please return to the emergency department Referrals: Alesha Mares MD [Primary Care Provider] - Lance Gomez MD [Non Staff, Medical] - Disposition: HOME - Home Medications Comprehensive Discharge Medication List: Ambulatory Orders Aspirin [ASA -] 81 mg PO DAILY 12/16/17 Atorvastatin Ca [Lipitor] 80 mg PO DAILY 12/16/17 Clopidogrel Bisulfate [Plavix] 75 mg PO DAILY 12/16/17 Isosorbide Mononitrate [Isosorbide Mononitrate ER] 120 mg PO DAILY 12/16/17 Ranolazine [Ranexa] 500 mg PO DAILY 12/16/17 This patient is new to me today: Yes Date on this admission: 12/18/17 Emergency Visit: Yes ED Registration Date: 12/16/17 Care time: The patient presented to the Emergency Department on the above date and was hospitalized for further evaluation of their emergent condition. Critical Care patient: No - Discharge Referral Referred to [facility] Med P.C.: No
== END 2017-12-18 15:49 | disposition home or self-care (01) ==
LOC: FER 08:52 → FM/S 11:58
PROVIDERS: ADMIT Internal Medicine; ATTEND Nurse Practitioner Family
PROC: 3E033GC Introduction of Other Therapeutic Substance into Peripheral Vein, Percutaneous Approach (ICD-10-PCS; principal; 2017-12-16)
PROC: 3E0234Z Introduction of Serum, Toxoid and Vaccine into Muscle, Percutaneous Approach (ICD-10-PCS; 2017-12-16)
DX: R06.02 Shortness of breath (principal); I10 Essential (primary) hypertension; I25.10 Atherosclerotic heart disease of native coronary artery without angina pectoris; I25.2 Old myocardial infarction; E78.5 Hyperlipidemia, unspecified; E66.9 Obesity, unspecified; Z68.29 Body mass index [BMI] 29.0-29.9, adult; Z95.1 Presence of aortocoronary bypass graft; Z95.5 Presence of coronary angioplasty implant and graft; Z91.89 Other specified personal risk factors, not elsewhere classified; Z87.891 Personal history of nicotine dependence; Z79.82 Long term (current) use of aspirin; Z23 Encounter for immunization
CPT/HCPCS: 36415; 71046-TC-FY; 78452-TC; 80053; 82550; 83735; 83880; 84443; 84484; 85025; 85379; 85610; 85730; 90471; 90686; 93005; 93017; 93306-TC; 96374; 99284-25; A9502; G0378; J1644

== ENCOUNTER 2021-08-19 08:57 | Emergency (ER) | payer OTHER, BC ==
[2021-08-19 10:30] LABS: BASO % 0.4 % (0-2.0); EOS % 0.1 % (0-4.5); HEMATOCRIT 39.1 % (35.4-49); HEMOGLOBIN 13.1 GM/dL (11.7-16.9); LYMPH % 9.4 % (8-40); MCH 33.6 pg (25.7-33.7); MCHC 33.6 g/dl (32.0-35.9); MEAN CELL VOLUME 99.9 fl (80-96); MEAN PLT VOLUME 8.9 fl (7.5-11.1); MONO % 5.5 % (3.8-10.2); NEUT % 84.6 % (42.8-82.8); PLATELET COUNT 140 10^3/uL (134-434); RBC 3.91 M/mm3 (4.00-5.60); RDW 13.7 % (11.9-15.9)
[2021-08-19 10:34] LABS: CHLORIDE 106 mmol/L (98-107); SODIUM 137 mmol/L (136-145)
[2021-08-19 10:36] LABS: ALBUMIN 3.5 g/dl (3.4-5.0); BLOOD UREA NITROGEN 17.2 mg/dL (7-18); CALCIUM 8.9 mg/dL (8.5-10.1); CO2 25 mmol/L (21-32); GLUCOSE,RANDOM 179 mg/dL (74-106)
[2021-08-19 10:40] LABS: SGOT/AST 63 U/L (15-37)
[2021-08-19 10:41] LABS: BILIRUBIN,TOTAL 0.5 mg/dL (0.2-1); TOT PROT 7.7 g/dl (6.4-8.2)
[2021-08-19 10:42] LABS: ALK PHOS 88 U/L (45-117)
[2021-08-19] MEDS ORDERED: ACETAMINOPHEN 1000 MG/100 ML BAG IVPB ONE (10:42)
[2021-08-19] MEDS ORDERED: ONDANSETRON 4 MG/2 ML VIAL IVPUSH ONE (10:42)
[2021-08-19] MEDS ORDERED: SODIUM CHLORIDE 0.9% 500 ML INFUS.BAG IV ONE (10:42)
[2021-08-19 10:43] LABS: ANION GAP 5 MMOL/L (8-16); SGPT/ALT 16 U/L (13-61)
[2021-08-19] MEDS ORDERED: ONDANSETRON 4 MG/2 ML VIAL ONE (10:51)
[2021-08-19] MEDS ORDERED: ACETAMINOPHEN INJECTION 100 ML IVPB ONE (10:51)
[2021-08-19 11:22] VITALS: BP 139/72; PULSE 61; TEMP 99.1
[2021-08-19 13:14] LABS: CALCIUM 8.5 mg/dL (8.5-10.1)
[2021-08-19 13:15] LABS: BLOOD UREA NITROGEN 16.4 mg/dL (7-18)
[2021-08-19 13:18] LABS: CREATININE 0.8 mg/dL (0.55-1.3)
== END 2021-08-19 15:02 | disposition home or self-care (01) ==
LOC: JER 08:57
DX: R11.2 Nausea with vomiting, unspecified (principal)
CPT/HCPCS: 0241U-QW; 36415; 71045-TC-FY; 74176-TC; 80048; 80053; 84484; 85025; 93005; 93010; 99281-25